=== PATIENT | male | born 1990 | race Caucasian/White ===

== ENCOUNTER 2024-11-07 13:37 | Outpatient (AMB) | payer OTHER, SELFPAY ==
--- NOTE | 2024-11-07 13:40 | MHC.PC.OV ---
Vital Signs 11/07/24 13:59 Height 6 ft Weight 183 lb BMI 24.8 BP 100/68 Blood Pressure Location Rt brachial Position Sitting Respiration 14 Pulse 76 Pulse Source Pulse Oximeter Temp 98.4 F Temp Source Temporal Artery Scan Pulse Oximetry (%) 98 Oxygen Delivery Method Room Air Intake Visit Reasons: SIDE LASTER STAPLE // Requesting a PE Intake Note: Chan presents in the office today to establish care. Allergies Seasonal Allergies Allergy (Verified 11/07/24 13:54) Watery Eye Tobacco use date assessed: 11/07/24 Dental Screening Dental Screen Date: 11/07/24 Did you have a dental visit in the last 12 months?: No Did you have a dental problem in the last 6 months where you did not have access to dental care?: No Was dental information given to patient?: Patient declined HPI HPI Comments History of Present Illness Details This is a 34-year-old male with a past medical history of Jory's, vitamin-D deficiency, hyperlipidemia and anxiety with depression presenting to establish care. He transferred from [facility]. Jory's-last TSH 9.11. Denies symptoms. Never required treatment. Strong family history of this. He has a strong family history of cardiac disease. His father had a CABG x 3 age 60, and his paternal grandfather in his sleep presumably of a heart attack. The patient had a coronary artery calcium test in late 2023 or early 2024, and his score was 0. Denies chest pain and shortness of breath. He is a nonsmoker. Eye exam is up-to-date. He will schedule a dental exam[id number] [address] IU daily. Declines influenza vaccine. Tdap is up to date per patient. ROS: Constitutional: No unexplained weight loss, fever, chills, fatigue or night sweats. Eyes: No vision changes, blurry vision, double vision, eye pain, eye redness, eye discharge. ENT: No hearing loss, sneezing, congestion, runny nose or sore throat. Respiratory: No shortness of breath, cough or sputum production. Cardiovascular: No chest pain, chest pressure or chest discomfort. No palpitations or pedal edema. Gastrointestinal: No anorexia, nausea, vomiting or diarrhea. No abdominal pain or blood in stool. Genitourinary: No dysuria, hematuria, urinary frequency. Denies testicular pain, swelling, lumps. Neurologic: No headache, dizziness, syncope, unilateral weakness, ataxia, numbness or tingling in the extremities. Musculoskeletal: No muscle pain, back pain, joint pain or swelling. Hematologic/Lymphatics: No bleeding or bruising. No painful lymph nodes. Skin: No rash Endocrine: No cold or heat intolerance. No polyuria or polydipsia. Psychiatric: Previously seen by a therapist. He is doing well now. Physical exam: Constitutional: Alert, in no distress. Head: Normocephalic. Eyes: Pupils are equal, round and reactive to light. Extraocular muscles intact. Ear, Nose and Throat: Canals clear. TMs normal. Normal nasal mucosa. No nasal discharge. No oral lesions. Neck: Supple, Full range of motion. No lymphadenopathy. No palpable thyroid masses. Respiratory: Clear to auscultation. Cardiovascular: S1 S2 regular. No murmurs Gastrointestinal: Abdomen soft, non-tender, non-distended. Normal bowel sounds. No palpable masses. Genitourinary: Deferred Neurologic: No focal neurological deficits. Symmetric patellar reflexes. Moves all extremities spontaneously. Sensation intact bilaterally. Skin: No rashes or lesions. Musculoskeletal: No gross deformities. Normal range of motion. Extremities: Warm and well perfused. No clubbing, cyanosis or edema. Psychiatric: Normal mood and affect [facility] Medical History (Updated 11/07/24 @ 14:43 by WILMA Chance) Routine physical examination Jory thyroiditis Vitamin D deficiency Hypercholesterolemia Depression with anxiety Seasonal allergies Surgical History (Updated 11/07/24 @ 14:34 by WILMA Chance) Hx of vasectomy Family History (Updated 11/07/24 @ 14:06 by Tiana Bermudez CMA) Father Cardiovascular disease Thyroid disorder Jory's disease Paternal Grandfather Cardiovascular disease Sister Thyroid disorder Paternal Aunt Jory's disease Other Asthma Social History (Updated 11/07/24 @ 13:59 by Tiana Bermudez CMA) Housing: House Alcohol intake: current Patient Tobacco Use Status: Never used Tobacco e-Cigarette/Vaping Use: Never Used Second Hand Smoke Exposure: No service: No Current occupational status: unemployed 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 Current occupational exposures/hazards: No Cognitive needs: No Hearing needs: No Vision needs: No Questionnaire PHQ-9 Over the last 2 weeks, how often have you been bothered by any of the following problems? 1. Little interest or pleasure in doing things: not at all 2. Feeling down, depressed, or hopeless: not at all 3. Trouble falling or staying asleep, or sleeping too much: not at all 4. Feeling tired or having little energy: more than half the days 5. Poor appetite or overeating: not at all 6. Feeling bad about yourself - or that you are a failure or have let yourself or your family down: not at all 7. Trouble concentrating on things, such as reading the newspaper or watching television: not at all 8. Moving or speaking so slowly that other people could have noticed. Or the opposite - being so fidgety or restless that you have been moving around a lot more than usual: not at all 9. Thoughts that you would be better off or of hurting yourself in some way: not at all Total score: 2 Depression Screening Interpretation: Negative Depression Screening Done: Yes 05777 - PHQ-9 Billing: Yes Source: Developed by Drs. Usama Stovall, Stormy Freeman, Wayne Modi and colleagues, with an educational zoe from [employer]. Thrive Questionnaire Date Thrive assessed: 11/07/24 I am a: Patient What is your living situation today?: I have a steady place to live Within the past 12 months, did the food you bought not last and you didn't have the money to get more?: Never true Within the past 12 months, did you worry whether your food would run out before you got money to buy more?: Never true Do you have trouble paying for medicines?: I choose not to answer this question Do you have trouble getting transportation to medical appointments?: No Do you have trouble paying your heating and electricity bill?: No Do you have trouble taking care of your child, family member or friend?: I choose not to answer this question Do you have trouble with day-to-day activities such as bathing, preparing meals, shopping, managing finances, etc.?: No Are you currently unemployed and looking for a job?: I choose not to answer this question Are you interested in more education?: I choose not to answer this question Please select the resources that you would like help with: None Currently or been in a relationship where the following occur: I choose not to answer THRIVE Score: 0 AUDIT C Alcohol Use Questionnaire (AUDIT-C) 1. How often do you have a drink containing alcohol?: Monthly or less 2. How many drinks containing alcohol do you have on a typical day when you are drinking?: 1 or 2 3. How often do you have six or more drinks on one occasion?: Never Total Score: 1 GILBERTO-7 AMB Questionnaire GILBERTO-7 Date GILBERTO - 7 assessed: 11/07/24 Feeling nervous, anxious, or on edge: 1 = Several days Not being able to stop or control worryin = Not at all Worrying too much about different things: 0 = Not at all Trouble relaxin = Not at all Being so restless that it is hard to sit still: 0 = Not at all Becoming easily annoyed or irritable: 1 = Several days Feeling afraid as if something awful might happen: 1 = Several days Total GILBERTO-7 score (0-4 normal; 5-9 mild; 10-14 moderate; 15-21 severe): 3 Source: Developed by Drs. Usama Stovall, Stormy Freeman, Wayne Modi and colleagues, with an educational zoe from [employer]. GILBERTO-7 Assessment Billing GILBERTO-7 Assessment Tool: GILBERTO-7 Assessment 15374 Physical exam (Primary Care) Vital Signs: Last Vital Signs Temp 98.4 F 11/07/24 13:59 Pulse 76 11/07/24 13:59 Resp 14 11/07/24 13:59 BP 100/68 11/07/24 13:59 Pulse Ox 98 11/07/24 13:59 Oxygen Delivery Method Room Air 11/07/24 13:59 BMI result Body Mass Index 24.8 Tobacco/Smoking Status: Tobacco use Status Tobacco use date assessed 11/07/24 11/07/24 14:08 Patient Tobacco Use Status Never used Tobacco 11/07/24 14:08 e-Cigarette/Vaping Use Never Used 11/07/24 14:08 PHQ-9: PHQ-9 Score PHQ-9: Total score 2 11/07/24 13:45 Depression Screening Interpretation: Negative Thrive Assessment: Date of Thrive Assessment Date Thrive assessed 11/07/24 11/07/24 13:45 Currently or been in a relationship where the following occur: I choose not to answer Coding Level of Care Code New Pt Prev Care 18-39yr(73824 Diagnoses Routine physical examination Z00.00 Hypercholesterolemia E78.00 Vitamin D deficiency E55.9 Jory thyroiditis E06.3 Additional Codes GILBERTO-7 Assessment Billing - GILBERTO-7 Assessment Tool: GILBERTO-7 Assessment 71412 ([id number]) PHQ-9 - 63223 - PHQ-9 Billing: Yes ([id number]) Assessment & Plan Assessment & Plan (1) Routine physical examination: Code(s): Z00.00 - Encounter for general adult medical examination without abnormal findings Category: Medical Plan: Patient is seen today for a routine physical. As part of this visit we reviewed the following issues, which are considered and essential part of preventative health in this age group: - Blood pressure screening - Cholesterol screening - Nutritional and exercise counseling - Counseling of injury prevention including fire prevention, smoke alarms and seat belt usage - Screening for depression - Prevention of and/or testing for infectious diseases - Education about skin cancer - Recommendations about immunizations - Recommendation of an eye exam - Screening for substance abuse (2) Hypercholesterolemia: Code(s): E78.00 - Pure hypercholesterolemia, unspecified Category: Medical Plan: Last LDL 132. Mediterranean diet recommended. He exercises regularly. He avoid smoking. He will avoid excessive alcohol use. Given strong family history of coronary artery disease we will repeat his coronary calcium CT in 5 years. (3) Vitamin D deficiency: Code(s): E55.9 - Vitamin D deficiency, unspecified Category: Medical Plan: Continue supplement. Check vitamin-D level. (4) Jory thyroiditis: Code(s): E06.3 - Autoimmune thyroiditis Category: Medical Plan: No symptoms of hypothyroidism. TSH less than 10. Monitor. Plan Schedule physical exam in 1 year. Orders: Orders Vitamin D 25-OH (D2 and D3) Today E06.3 - Autoimmune thyroiditis, E55.9 - Vitamin D deficiency, unspecified, E78.00 - Pure hypercholesterolemia, unspecified TSH reflex Free T4 Today E06.3 - Autoimmune thyroiditis
[2024-11-07 13:59] VITALS: BP 100/68; PULSE 76; RESP 14; TEMP 36.9; O2SAT 98; BMI 24.8
--- OUTSIDE RECORDS SUMMARY | 2024-11-07 18:11 | XMS_ITS | Clinical Summary ---
Author Organization [facility] Address [address] [place] [address] Care Team Providers Care Safekeeping Clerk Name Role Phone Pcp, No Primary Care Provider Unavailabl e Allergies No known active allergies Medications ofloxacin (OCUFLOX) 0.3 % ophthalmic solutionIndication s:Acute bacterial conjunctivitis of both eyes Administer 2 drops to both eyes 4 (four) times a day. 5 mL Active Active Problems No known active problems Social History Tobacco Use Types Packs/Day Years Used Date Smoking Tobacco: Never Smokeless Tobacco: Never Tobacco Cessation:Counseling Given: Not Answered Alcohol Use Standard Drinks/Week Comments Yes 0 (1 standard drink = 0.6 oz pur e alcohol) occ Sex and Gender Information Value Date Recorded Sex Assigned at Not on file Legal Sex Male 10:29 AM EDT Gender Identity Male 06/09/2022 11:28 AM EDT Sexual Orientation Choose not to disclose 2022 11:28 AM EDT Last Filed Vital Signs Vital Sign Reading Time Taken Comments Blood Pressure 113/72 05/12/2022 11:40 AM EDT Pulse 69 05/12/2022 11:40 AM EDT Temperature 36.9 C (98.5 F) 05/12/2022 11:40 AM EDT Respiratory Rate - - Oxygen Saturation 100% 05/12/2022 11:40 AM EDT Inhaled Oxygen Concentration - - Weight 61.2 kg (135 lb) 05/12/2022 11:40 AM EDT Height 182.9 cm (6') 05/12/2022 11:40 AM EDT Body Mass Index 18.31 05/12/2022 11:40 AM EDT Plan of Treatment Health Maintenance Due Date Last Done Comments Hepatitis C Virus Screening 1988 HIV Screening 2001 DTaP/Tdap/Td Vaccines (1 - Tdap) 2007 Hepatitis B Vaccines (1 of 3 - 19+ 3-dose series) 2007 HPV Vaccines (1 - 3-dose SCD M series) 2015 Influenza Vaccine 09/13/2024 COVID-19 Vaccine (1 - 2023-2 5 season) 2024 Pneumococcal Vaccine: Pediat thu (0-5 Years) and At-Risk Patients (6 to 49 Years) Aged Out No longer eligible b ased on patient's age to complete this topic Insurance [facility] Care Teams Safekeeping Clerk Relationship Specialty Start Date End Date Pcp, No PCP - General General Medicine 05/12/22
--- OUTSIDE RECORDS SUMMARY | 2024-11-07 18:11 | XMS_ITS | Clinical Summary ---
Author Organization [facility] Address [address] [place] [phone] Phone Care Team Providers Care Epitaxial Reactor Operator Name Role Phone Nisha Hicks MD Primary Care Provider Unava ilable Immunizations Immunization Administration Dates Next Due DTP 02/12/1999, 9,07/13/1998,1992,12/13/1989 Hep B, ped/adol 05/22/2000,01/26/2000,12/13/1999 Hib (PRP-T) 12/13/1989 IPV 11/12/1998, 9,08/12/1992,1989 MMR 10/13/2000,07/13/1989 Td (adult) (MBL), 2 Lf tetan us toxoid, PF, adsorbed 10/13/2000 Varicella 04/03/1997 Social History Tobacco Use Types Packs/Day Years Used Date Smoking Tobacco: Never Assessed Sex and Gender Information Value Date Recorded Sex Assigned at Not on file Legal Sex Male 4:26 PM EDT Gender Identity Not on file Sexual Orientation Not on file Plan of Treatment Health Maintenance Due Date Last Done Comments Varicella Vaccines (2 of 2 - 2-dose childhood series) 11/10/2000 04/03/1997 DTaP,Tdap,and Td Vaccines (7 - Tdap) 10/13/2010 10/13/2000, 02/12/1999, 11/12/1998, Additional history exists HPV Vaccines (1 - 3-dose SCDM series) 2015 Influenza Vaccines (#1) 2024 COVID-19 Vaccine ( season) 2024 HIB Vaccines Completed 12/13/1989 IPV Vaccines Completed 11/12/1998, 05/3 02/1998, 08/12/1992, Additional history exists Hepatitis B Vaccines Completed 05/22/2000, 01/26/2000, 12/13/1999 MMR Vaccines Completed 10/13/2000, 07/13/1989 Hepatitis A Vaccines Aged Out No long er eligible based on patient's age to complete this topic Men B Vaccine Aged Out No longer elig ible based on patient's age to complete this topic Meningococcal Vaccine Aged Out No alysha nate eligible based on patient's age to complete this topic Pneumococcal Vaccine Aged Out No long er eligible based on patient's age to complete this topic Care Teams Epitaxial Reactor Operator Relationship Specialty Start Date End Date Nisha Hicks MD PCP - General 09/23/16
--- OUTSIDE RECORDS SUMMARY | 2024-11-07 18:11 | XMS_ITS | Encounter Summary ---
Author Organization [facility] Address [address] [place] [phone] Phone Care Team Providers Care Rehabilitation Therapy Technician Name Role Phone Nisha Hicks MD Primary Care Provider Unava ilable Encounter Details Date Type Department Care Team (Late st Contact Info) Description 12/15/2016 Conversion Encounter [facility] - [address] [address] Social History Tobacco Use Types Packs/Day Years Used Date Smoking Tobacco: Never Assessed Sex and Gender Information Value Date Recorded Sex Assigned at Not on file Legal Sex Male 4:26 PM EDT Gender Identity Not on file Sexual Orientation Not on file documented as of this encounter Plan of Treatment Not on file documented as of this encounter Visit Diagnoses Not on filedocumented in this encounter Care Teams Rehabilitation Therapy Technician Relationship Specialty Start Date End Date Nisha Hicks MD PCP - General 09/23/16 documented as of this encounter
--- OUTSIDE RECORDS SUMMARY | 2024-11-07 18:11 | XMS_ITS ---
Author Name [facility] Organization Unknown History of Medication Use Medication Directions Dispensed Refills Start Date End Date Stat ofloxacin (OCUFLOX) 0.3 % ophthalmic solution Administer 2 drops to both eyes 4 (four) times a day. 05/12/2022 active Problems Problem Status Onset Date Problem Type Date of Resolution Source Acute bacterial conjunctivitis of both eyes active EncounterDiagnosisAct CCT Encounters Encounter Type Encounter Reason Primary Diagnosis Location Date Ambulatory Unspecified acut e conjunctivitis, bilateral [facility] 05/12/2022 Care Team Organization Name Specialty Phone Email Start Date End Da te [facility] NO PCP Primary Care 05/12/2022 05/12/2022 [facility] PCP,No Primary Care 05/12/2022
== END 2024-11-07 14:38 | disposition home or self-care (01) ==
LOC: HO.HMCFM 13:38
PROVIDERS: PCP Physician Assistant Medical; Visit Provider Physician Assistant Medical
DX: Z00.00 Encounter for general adult medical examination without abnormal findings (principal); E78.00 Pure hypercholesterolemia, unspecified; E55.9 Vitamin D deficiency, unspecified; E06.3 Autoimmune thyroiditis

== ENCOUNTER → 2024-11-07 13:37 | Outpatient (BNVA) | payer OTHER, SELFPAY | PROVIDERS: PCP Physician Assistant Medical; Visit Provider Physician Assistant Medical | DX: Z00.00 Encounter for general adult medical examination without abnormal findings (principal); E78.00 Pure hypercholesterolemia, unspecified; E55.9 Vitamin D deficiency, unspecified; E06.3 Autoimmune thyroiditis; Z82.49 Family history of ischemic heart disease and other diseases of the circulatory system; Z13.31 Encounter for screening for depression; Z13.39 Encounter for screening examination for other mental health and behavioral disorders | CPT/HCPCS: 96127 ==

== ENCOUNTER 2024-11-12 09:53 | Outpatient (REF) | payer OTHER, SELFPAY ==
--- OUTSIDE RECORDS SUMMARY | 2024-11-12 10:47 | XMS_ITS | Clinical Summary ---
Author Organization [facility] Address [address] [place] [phone] Phone Care Team Providers Care Thread Spooler Name Role Phone Nisha Hicks MD Primary [...] 2015 Influenza Vaccines (#1) 2024 COVID-19 Vaccine (2024- season) 2024 HIB Vaccines Completed 12/13/1989 IPV [...] age to complete this topic Care Teams Thread Spooler Relationship Specialty Start Date End Date Nisha Hicks MD PCP - General 09/23/16
--- OUTSIDE RECORDS SUMMARY | 2024-11-12 10:47 | XMS_ITS | Encounter Summary ---
Author Organization [facility] Address [address] [place] [phone] Phone Care Team Providers Care Senior Java Software Developer Name Role Phone Nisha Hicks MD Primary Care Provider Unava ilable Encounter Details Date Type Department Care Team (Late st Contact Info) Description 12/15/2016 Conversion Encounter [facility] - [address] [address] Social History Tobacco Use Types Packs/Day Years [...] on filedocumented in this encounter Care Teams Senior Java Software Developer Relationship Specialty Start Date End Date Nisha Hicks MD PCP - General 09/23/16 documented as of this encounter
--- OUTSIDE RECORDS SUMMARY | 2024-11-12 10:47 | XMS_ITS | Clinical Summary ---
Author Organization [facility] Address [address] [place] [address] Care Team Providers Care Ux Researcher Name Role Phone Pcp, No Primary Care [...] of 3 - 19+ 3-dose series) 2007 Influenza Vaccine 09/13/2024 COVID-19 Vaccine (1 - 2023-2 5 season) 2024 HPV Vaccines (No Doses Required) Completed Pneumococcal Vaccine: Pediat thu (0-5 Years) and At-Risk Patients (6 to 49 Years) Aged Out No longer eligible b ased on patient's age to complete this topic [facility] Care Teams Ux Researcher Relationship Specialty Start Date End Date Pcp, No PCP - General General Medicine 05/12/22
[2024-11-12 16:49] LABS: Free T4 (Free Thyroxine) 0.81 ng/dL (0.71-1.85)
[2024-11-16 12:28] LABS: Vitamin D 25-OH, D2 <4 ng/mL; Vitamin D 25-OH, D3 54 ng/mL; Vitamin D 25-OH, Total 54 ng/mL (30-100)
== END 2024-11-12 09:54 | disposition home or self-care (01) ==
LOC: HO.WFDLDS 09:53
PROVIDERS: Visit Provider Physician Assistant Medical
DX: E06.3 Autoimmune thyroiditis (principal); E78.00 Pure hypercholesterolemia, unspecified; E55.9 Vitamin D deficiency, unspecified
CPT/HCPCS: 36415; 82306; 84439; 84443